=== PATIENT | male | born 1980 | race African-American/Black ===

== ENCOUNTER 2018-05-17 18:34 | Emergency (ER) | payer BC, OTHER ==
[~2018-05-17] VITALS: Ht 182.9 cm; Wt 97.5 kg
[~2018-05-17 18:34] MED LIST: PERCOCET 5-3251 EACH PO; TAMSULOSIN HCL0.4 MG PO; ZOFRAN 4 MG ORAL4 M1 DIS; ZYRTEC 10 MG TA10 M1 PO
[2018-05-17 18:49] LABS: URINE BILIRUBIN NEGATIVE (Negative); URINE BLOOD NEGATIVE (Negative); URINE CLARITY CLEAR; URINE COLOR YELLOW; URINE GLUCOSE-RANDOM* NEGATIVE (Negative); URINE KETONES NEGATIVE (Negative); URINE LEUKOCYTES-REFLEX NEGATIVE (Negative); URINE NITRITE-REFLEX NEGATIVE (Negative); URINE PROTEIN (DIPSTICK) TRACE (Negative); URINE SPECIFIC GRAVITY 1.015 (1.005-1.035); URINE UROBILINOGEN 0.2 E.U./dl (0.2-1.0)
[2018-05-17] MEDS ORDERED: PREDNISONE 10 M10 MG PO (19:22)
[2018-05-17] MEDS ORDERED: DULCOLAX5 MG PO (19:23)
[2018-05-17 19:28] LABS: HEMATOCRIT 45.9 % (42.0-52.0); HEMOGLOBIN 16.5 gm/dL (14.0-18.0); MCH 36.8 pg (26.0-34.0); MCHC 35.9 g/dL (28.0-37.0); MCV 102.6 fL (80.0-100.0); RBC 4.48 mil/uL (4.50-6.00); WBC 8.3 thou/uL (4.0-11.0)
[2018-05-17 19:35] LABS: CALCIUM 9.7 mg/dL (8.5-10.1); CREATININE 1.2 mg/dL (0.7-1.3); POTASSIUM 3.8 mmol/L (3.5-5.1)
[2018-05-17 19:42] LABS: ALBUMIN 4.4 g/dL (3.4-5.0); TOTAL BILIRUBIN 0.8 mg/dL (<0.1-1.0); TOTAL PROTEIN 8.5 g/dL (6.4-8.2)
[2018-05-17 20:06] LABS: ABSOLUTE NEUTROPHILS 7.4 thou/uL (1.4-8.2); MACROCYTES 1+; PLATELET COUNT 246 thou/uL (150-400)
[2018-05-17] MEDS ORDERED: ZOFRAN ODT4 MG PO (22:03)
[2018-05-17] MEDS ORDERED: PHENERGAN 25 MG25 M1 PO (22:03)
[2018-05-17] MEDS ORDERED: HYDROCODONE-AP1 EAC6 PO (22:03)
[2018-05-17 22:26] VITALS: BP 163/83
== END 2018-05-17 22:27 | disposition home or self-care (01) ==
LOC: ER 18:34
PROVIDERS: Physician Assistant
DX: K85.90 Acute pancreatitis without necrosis or infection, unspecified (principal); Z88.0 Allergy status to penicillin

== ENCOUNTER 2018-10-13 04:44 | Emergency (ER) | payer BC, OTHER ==
[~2018-10-13] VITALS: Ht 182.9 cm; Wt 97.5 kg
[~2018-10-13 04:44] MED LIST changes: +DULCOLAX5 MG PO; +HYDROCODONE-AP1 EAC6 PO; +PHENERGAN 25 MG25 M1 PO; +PREDNISONE 10 M10 MG PO; +ZOFRAN ODT4 MG PO
[2018-10-13 05:03] LABS: URINE BILIRUBIN NEGATIVE (Negative); URINE BLOOD NEGATIVE (Negative); URINE CLARITY CLEAR; URINE COLOR YELLOW; URINE GLUCOSE-RANDOM* NEGATIVE (Negative); URINE KETONES 1+ (Negative); URINE LEUKOCYTES NEGATIVE (Negative); URINE NITRITE NEGATIVE (Negative); URINE PROTEIN (DIPSTICK) TRACE (Negative)
[2018-10-13 05:27] LABS: BASOPHILS 0.6 % (0.0-2.0); EOSINOPHILS 0.3 % (0.0-3.0); HEMATOCRIT 44.1 % (42.0-52.0); HEMOGLOBIN 15.3 gm/dL (14.0-18.0); LYMPHOCYTES 15.6 % (24.0-44.0); MCH 35.4 pg (26.0-34.0); MCHC 34.7 g/dL (28.0-37.0); MCV 102.1 fL (80.0-100.0); MONOCYTES 4.7 % (1.0-8.0); PLATELET COUNT 290 thou/uL (150-400); POLYS 78.8 % (36.0-66.0); RBC 4.32 mil/uL (4.50-6.00); RDW 15.8 % (10.5-14.5); WBC 5.1 thou/uL (4.0-11.0)
[2018-10-13 05:37] LABS: CALCIUM 9.4 mg/dL (8.5-10.1); POTASSIUM 3.6 mmol/L (3.5-5.1)
[2018-10-13 05:44] LABS: ALBUMIN 3.9 g/dL (3.4-5.0); TOTAL BILIRUBIN 1.2 mg/dL (<0.1-1.0); TOTAL PROTEIN 7.9 g/dL (6.4-8.2)
[2018-10-13] MEDS ORDERED: NORCO 5-325 TA1 EACH PO (08:53)
[2018-10-13] MEDS ORDERED: ZOFRAN ODT4 MG PO (08:53)
[2018-10-13 09:14] VITALS: BP 144/107
== END 2018-10-13 09:23 | disposition home or self-care (01) ==
LOC: ER 04:44
PROVIDERS: Student in an Organized Health Care Education/Training Program
DX: K85.90 Acute pancreatitis without necrosis or infection, unspecified (principal); Z88.0 Allergy status to penicillin

== ENCOUNTER 2019-03-16 08:51 | Emergency (ER) | payer OTHER ==
[~2019-03-16] VITALS: Ht 182.9 cm; Wt 95.3 kg
[~2019-03-16 08:51] MED LIST changes: +NORCO 5-325 TA1 EACH PO
[2019-03-16 09:17] LABS: ABSOLUTE NEUTROPHILS 6.6 thou/uL (1.4-8.2); BASOPHILS 0.3 % (0.0-2.0); EOSINOPHILS 2.1 % (0.0-3.0); HEMATOCRIT 42.8 % (42.0-52.0); HEMOGLOBIN 15.1 gm/dL (14.0-18.0); LYMPHOCYTES 16.5 % (24.0-44.0); MCH 36.6 pg (26.0-34.0); MCHC 35.4 g/dL (28.0-37.0); MCV 103.4 fL (80.0-100.0); MONOCYTES 3.9 % (1.0-8.0); PLATELET COUNT 223 thou/uL (150-400); POLYS 77.2 % (36.0-66.0); RBC 4.14 mil/uL (4.50-6.00); RDW 15.3 % (10.5-14.5); WBC 8.5 thou/uL (4.0-11.0)
[2019-03-16 09:28] LABS: ALBUMIN 3.9 g/dL (3.4-5.0); CALCIUM 9.9 mg/dL (8.5-10.1); CREATININE 1.1 mg/dL (0.7-1.3); DIRECT BILIRUBIN 0.4 mg/dL (<0.1-0.3); TOTAL BILIRUBIN 1.2 mg/dL (<0.1-1.0); TOTAL PROTEIN 8.3 g/dL (6.4-8.2)
[2019-03-16 09:30] LABS: POTASSIUM 2.8 mmol/L (3.5-5.1)
[2019-03-16 13:32] VITALS: BP 173/118
[2019-03-16] MEDS ORDERED: CARAFATE 1 GM TA1 G1 PO (13:36)
[2019-03-16] MEDS ORDERED: LIDOCAINE40 MG/1 ML PO (13:36)
[2019-03-16] MEDS ORDERED: POTASSIUM20 PO (13:36)
[2019-03-16] MEDS ORDERED: BENADRYL A12.5 MG/5 PO (13:36)
== END 2019-03-16 13:30 | disposition home or self-care (01) ==
LOC: ER 08:51
PROVIDERS: Emergency Medicine
DX: K29.70 Gastritis, unspecified, without bleeding (principal); E87.6 Hypokalemia; Z88.0 Allergy status to penicillin

== ENCOUNTER 2020-07-12 09:12 | Emergency (ER) | payer BC, OTHER ==
[~2020-07-12] VITALS: Ht 182.9 cm; Wt 95.3 kg
[~2020-07-12 09:12] MED LIST changes: +BENADRYL A12.5 MG/5 PO; +CARAFATE 1 GM TA1 G1 PO; +LIDOCAINE40 MG/1 ML PO; +POTASSIUM20 PO
[2020-07-12 09:51] LABS: ABSOLUTE NEUTROPHILS 2.1 thou/uL (1.4-8.2); BASOPHILS 1.1 % (0.0-2.0); EOSINOPHILS 0.4 % (0.0-3.0); HEMATOCRIT 40.5 % (42.0-52.0); HEMOGLOBIN 14.1 gm/dL (14.0-18.0); LYMPHOCYTES 24.5 % (24.0-44.0); MCH 35.2 pg (26.0-34.0); MCHC 34.8 g/dL (28.0-37.0); PLATELET COUNT 110 thou/uL (150-400); RBC 4.01 mil/uL (4.50-6.00); RDW 19.7 % (10.5-14.5); WBC 3.3 thou/uL (4.0-11.0)
[2020-07-12 10:11] LABS: AMP/METHAMP Negative (Negative); BARBITURATES Negative (Negative); BENZODIAZEPINES Negative (Negative); COCAINE Negative (Negative); METHADONE Negative (Negative); OPIATES Negative (Negative); PCP Negative (Negative)
[2020-07-12 10:22] LABS: ANION GAP 13 mmol/L (7-16); BUN 6 mg/dL (7-18); CALCIUM 9.4 mg/dL (8.5-10.1); CHLORIDE 97 mmol/L (98-107); CO2 26 mmol/L (21-32); CREATININE 0.8 mg/dL (0.7-1.3); GLUCOSE 102 mg/dL (74-106); POTASSIUM 3.9 mmol/L (3.5-5.1); SODIUM 136 mmol/L (136-145)
[2020-07-12 10:33] LABS: ALBUMIN 4.5 g/dL (3.4-5.0); MAGNESIUM 1.7 mg/dL (1.8-2.4); SGOT 158 U/L (15-37); SGPT 60 U/L (30-65); TOTAL BILIRUBIN 0.9 mg/dL (0.2-1.0); TOTAL PROTEIN 8.6 g/dL (6.4-8.2); TROPONIN-I <0.06 ng/mL (<0.06)
[2020-07-12] MEDS ORDERED: NORVASC10 MG PO (10:43)
[2020-07-12 10:58] LABS: ANISOCYTOSIS 1+; PLATELET ESTIMATE NORMAL
[2020-07-12 11:24] VITALS: BP 182/125
--- NOTE | 2020-07-13 07:42 | EKG ---
[facility] [place] [address] ELECTROCARDIOGRAM REPORT Name: YOVANI WINTER Room #: DEP [facility]#: [id number] Admission: 07/12/20 Attend Phys: Discharge: 07/12/20 Date of : 78 Report #: [id number] THIS REPORT FOR: cc: MARCIA - No family physician/PCP FAM - No family physician/PCP Ben Hines MD [facility] THIS REPORT FOR: //name// [facility] ED Test Date: 2020-07-12 Test Time: 10:15:25 Pat Name: YOVANI WINTER Department: Room: Gender: Employment Supervisor: [facility] : 1980 Requested By: Dawson Land Order Number: [id number] MD: Ben Hines Measurements Intervals [place] Rate: 91 P: 23 HI: 138 QRS: 13 QRSD: 92 T: 17 QT: 369 QTc: 455 Interpretive Statements Sinus rhythm No significant abnormality No previous ECG available for comparison Electronically Signed On 07-13-2020 7:41:47 CDT by Ben Hines [email or web address] <ELECTRONICALLY SIGNED> By: Ben Hines MD, [facility] 07/13/20 [id number] [id number] Ben Hines MD, FAC /EPI
== END 2020-07-12 11:24 | disposition home or self-care (01) ==
LOC: ER 09:12
PROVIDERS: Emergency Medicine
DX: I10 Essential (primary) hypertension (principal); Z76.0 Encounter for issue of repeat prescription; M25.572 Pain in left ankle and joints of left foot; Z79.899 Other long term (current) drug therapy; Z88.0 Allergy status to penicillin